=== PATIENT | male | born 1960 | race Caucasian/White ===

== ENCOUNTER → 2017-10-28 | Outpatient (CLI) | payer BC, OTHER ==
[~2017-10-28] MED LIST: B12 COMPLEX PO; BUPR1FIL3; CHOL500045 PO; MAGNESIUM PO; METH500T7; PREG100C PO
[2017-10-28 09:04] LABS: BASOPHILS # (AUTO) 0.03 x10^3/uL (0-0.1); BASOPHILS % (AUTO) 1 % (0-1); EOSINOPHILS # (AUTO) 0.27 x10^3/uL (0-0.4); EOSINOPHILS % (AUTO) 4 % (1-7); LYMPHOCYTES # (AUTO) 1.53 x10^3/uL (1-3.4); LYMPHOCYTES % (AUTO) 23 % (22-44); MD NO; MEAN CORPUSCULAR HEMOGLOBIN 28.9 pg (27.5-34.5); MEAN CORPUSCULAR HGB CONC 33.6 g/dL (33.2-36.2); MEAN CORPUSCULAR VOLUME 85.9 fL (81-97); MEAN PLATELET VOLUME 8.2 fL (7.4-10.4); MONOCYTES # (AUTO) 0.56 x10^3/uL (0.2-0.8); MONOCYTES % (AUTO) 9 % (2-9); NEUTROPHILS # (AUTO) 4.17 x10^3/uL (1.8-6.8); NEUTROPHILS % (AUTO) 64 % (42-75); PLATELET COUNT 227 x10^3/uL (130-400); RED BLOOD COUNT 5.06 x10^6/uL (4.38-5.82); RED CELL DISTRIBUTION WIDTH 13.5 % (9.4-14.8)
[2017-10-28 09:09] LABS: ALANINE AMINOTRANSFERASE 46 U/L (12-78); ALBUMIN 3.5 g/dL (3.4-5.0); ANION GAP 6 mmol/L (5-15); CHLORIDE 107 mmol/L (98-107); CREATININE 0.86 mg/dL (0.7-1.3)
[2017-10-28 09:11] LABS: ALKALINE PHOSPHATASE 81 U/L (45-117); BILIRUBIN,TOTAL 0.8 mg/dL (0.2-1.0); TOTAL PROTEIN 6.8 g/dL (6.4-8.2)
== END | disposition home or self-care (01) ==
LOC: STAR 08:06
PROVIDERS: ATTEND Surgery
DX: Z01.818 Encounter for other preprocedural examination (principal); R94.31 Abnormal electrocardiogram [ECG] [EKG]
CPT/HCPCS: 36415; 80053; 85025; 93005

== ENCOUNTER 2017-11-04 07:09 | Inpatient (IN) | payer BC ==
[~2017-11-04] VITALS: Ht 170.2 cm; Wt 81.0 kg
[~2017-11-04 07:09] MED LIST changes: +BUPIVACAINE/PF-EPI 0.5% 1:200K ONE; +INDOCYANINE GREEN 25 MG VIAL ONE
[2017-11-04] MEDS ORDERED: LACTATED RINGERS 1,000 ML IV SCH (07:28)
[2017-11-04] MEDS ORDERED: ACETAMINOPHEN 500 MG TABLET PO ONE (07:30)
[2017-11-04] MEDS ORDERED: OxyconTIN ER 20 MG TAB.ER PO ONE (07:30)
[2017-11-04] MEDS ORDERED: FAMOTIDINE 20 MG TABLET PO ONE (07:30)
[2017-11-04] MEDS ORDERED: SCOPOLAMINE PATCH, 1.5MG PATCH.TD72 TD ONE (07:30)
[2017-11-04] MEDS ORDERED: PREGABALIN 150 MG CAPSULE PO ONE (07:30)
[2017-11-04 07:31] VITALS: BP 133/81
[2017-11-04] MEDS ORDERED: MIDAZOLAM 1 MG/ML, 2ML ONE (09:35)
[2017-11-04] MEDS ORDERED: FENTANYL PF 250 MCG/5ML ONE ×2 (09:35→10:45)
[2017-11-04] MEDS ORDERED: BUPIVACAINE/PF 0.25% ONE (09:38)
[2017-11-04] MEDS ORDERED: KETAMINE 10 MG/ML, 20ML ONE (09:44)
[2017-11-04] MEDS ORDERED: BUPIVACAINE/PF-EPI 0.5% 1:200K INFIL ONE (10:34)
[2017-11-04] MEDS ORDERED: HYDROmorphone 2 MG/ML, 1ML ONE ×2 (10:47→12:16)
[2017-11-04] MEDS ORDERED: MEPERIDINE/PF 25MG/0.5ML IVPush PRN (11:00)
[2017-11-04] MEDS ORDERED: DIPHENHYDRAMINE 50 MG/ML, 1ML IVPush PRN ×2 (11:00→13:30)
[2017-11-04] MEDS ORDERED: DIAZEPAM 5 MG/ML, 2ML IVPush PRN (11:00)
[2017-11-04] MEDS ORDERED: FENTANYL PF 100 MCG/2ML IV PRN (11:00)
[2017-11-04] MEDS ORDERED: MIDAZOLAM 1 MG/ML, 2ML IV PRN (11:00)
[2017-11-04] MEDS ORDERED: hydrALAzine 20 MG/ML, 1ML IV PRN (11:00)
[2017-11-04] MEDS ORDERED: PROMETHAZINE 25 MG/ML, 1ML IV PRN (11:00)
[2017-11-04] MEDS ORDERED: ALBUTEROL/IPRATROPIUM 2.5MG/0.5MG, 3 ML NPPB PRN (11:00)
[2017-11-04] MEDS ORDERED: ONDANSETRON 2MG/ML, 2ML IV PRN ×2 (11:00→13:30)
[2017-11-04] MEDS ORDERED: OXYcodone 5 MG/5 ML ORAL.SOL UDC PO PRN (11:00)
[2017-11-04] MEDS ORDERED: LABETALOL 5MG/ML, 20ML IV PRN (11:00)
[2017-11-04] MEDS ORDERED: EPHEDRINE 50 MG/ML, 1ML IM PRN (11:00)
[2017-11-04] MEDS ORDERED: HYDROmorphone 1 MG/ML, 1ML IV PRN (11:00)
[2017-11-04] MEDS ORDERED: DEXAMETHASONE 4 MG/ML, 1ML ONE (11:45)
[2017-11-04] MEDS ORDERED: CEFAZOLIN 1,000 MG ONE (11:45)
[2017-11-04] MEDS ORDERED: ROCURONIUM 10MG/ML,5ML ONE (11:45)
[2017-11-04] MEDS ORDERED: CEFOTETAN PMX 2GM/50ML 50 ML ONE (11:45)
[2017-11-04] MEDS ORDERED: GLYCOPYRROLATE 0.2MG/1ML, 5ML ONE (11:45)
[2017-11-04] MEDS ORDERED: PROPOFOL 10 MG/ML, 20ML ONE (11:45)
[2017-11-04] MEDS ORDERED: NEOSTIGMINE 1 MG/ML, 10ML ONE (11:45)
[2017-11-04] MEDS ORDERED: SUCCINYLCHOLINE 20 MG/ML, 10ML ONE (11:45)
[2017-11-04] MEDS ORDERED: ONDANSETRON 2MG/ML, 2ML ONE (11:45)
[2017-11-04] MEDS ORDERED: OXYcodone 5 MG/5 ML ORAL.SOL UDC ONE (12:16)
[2017-11-04] MEDS ORDERED: LORazepam 2 MG/ML, 1ML IVPush PRN (13:30)
[2017-11-04] MEDS ORDERED: HYDROmorphone 1 MG/ML, 1ML IVPush PRN (13:30)
[2017-11-04] MEDS ORDERED: D5%-0.45NACL+KCL 20MEQ 1,000 ML IV SCH (13:30)
[2017-11-04] MEDS ORDERED: HALOPERIDOL 5 MG/ML IVPush PRN (13:30)
[2017-11-04] MEDS ORDERED: SCOPOLAMINE PATCH, 1.5MG PATCH.TD72 TD PRN (13:30)
[2017-11-04] MEDS ORDERED: CALCIUM CARBONATE 500 MG TAB.CHEW PO PRN (13:30)
[2017-11-04] MEDS ORDERED: LORazepam 1MG TABLET PO PRN (13:30)
[2017-11-04] MEDS ORDERED: DEXAMETHASONE 4 MG/ML, 1ML IVPush PRN (13:30)
[2017-11-04] MEDS ORDERED: DIPHENHYDRAMINE 25 MG CAPSULE PO PRN (13:30)
[2017-11-04 15:05] VITALS: BP 122/77
[2017-11-04] MEDS: IBUPROFEN 800 MG TABLET PO SCH ×2 (16:00→20:36)
[2017-11-04] MEDS: OXYcodone IR 5MG TABLET PO PRN (17:26)
[2017-11-04] MEDS: ACETAMINOPHEN 500 MG TABLET PO SCH (17:26)
[2017-11-04 19:41] VITALS: BP 127/83
[2017-11-04] MEDS: PREGABALIN 200 MG CAPSULE PO SCH (20:36)
[2017-11-05] MEDS: ACETAMINOPHEN 500 MG TABLET PO SCH ×4 (00:01→17:49)
[2017-11-05 00:16] VITALS: BP 98/60
[2017-11-05 03:59] VITALS: BP 96/68
[2017-11-05 05:21] LABS: ANION GAP 7 mmol/L (5-15); CALCIUM 8.6 mg/dL (8.5-10.1); CHLORIDE 108 mmol/L (98-107)
[2017-11-05 05:22] LABS: CREATININE 0.98 mg/dL (0.7-1.3)
[2017-11-05 05:32] LABS: BASOPHILS # (AUTO) 0.01 x10^3/uL (0-0.1); BASOPHILS % (AUTO) 0 % (0-1); EOSINOPHILS # (AUTO) 0.01 x10^3/uL (0-0.4); EOSINOPHILS % (AUTO) 0 % (1-7); LYMPHOCYTES # (AUTO) 1.14 x10^3/uL (1-3.4); LYMPHOCYTES % (AUTO) 12 % (22-44); MD NO; MEAN CORPUSCULAR HEMOGLOBIN 29.1 pg (27.5-34.5); MEAN CORPUSCULAR HGB CONC 33.5 g/dL (33.2-36.2); MEAN CORPUSCULAR VOLUME 86.9 fL (81-97); MEAN PLATELET VOLUME 8.6 fL (7.4-10.4); MONOCYTES # (AUTO) 0.94 x10^3/uL (0.2-0.8); MONOCYTES % (AUTO) 10 % (2-9); NEUTROPHILS # (AUTO) 7.13 x10^3/uL (1.8-6.8); NEUTROPHILS % (AUTO) 77 % (42-75); PLATELET COUNT 228 x10^3/uL (130-400); RED BLOOD COUNT 4.94 x10^6/uL (4.38-5.82); RED CELL DISTRIBUTION WIDTH 13.4 % (9.4-14.8)
[2017-11-05] MEDS: OXYcodone IR 5MG TABLET PO PRN ×3 (06:16→16:05)
[2017-11-05 06:52] VITALS: BP 103/62
[2017-11-05] MEDS: MAGNESIUM OXIDE 400 MG TABLET PO SCH (08:51)
[2017-11-05] MEDS: PREGABALIN 200 MG CAPSULE PO SCH ×2 (08:52→20:55)
[2017-11-05] MEDS: IBUPROFEN 800 MG TABLET PO SCH ×3 (08:52→20:55)
[2017-11-05] MEDS ORDERED: ENOXAPARIN 40 MG/0.4 ML SQ SCH (09:30)
[2017-11-05 12:47] VITALS: BP 90/55
[2017-11-05 14:05] VITALS: BP 105/57
[2017-11-05 18:32] VITALS: BP 102/63
[2017-11-06] VITALS (8 sets, daily range): BP systolic 84–115; BP diastolic 52–74
[2017-11-06] MEDS: ACETAMINOPHEN 500 MG TABLET PO SCH ×4 (00:54→20:46)
[2017-11-06] MEDS ORDERED: SODIUM CHLORIDE 0.9% 1,000ML IVBOLUS ONE (01:00)
[2017-11-06 01:06] LABS: BASOPHILS # (AUTO) 0.06 x10^3/uL (0-0.1); BASOPHILS % (AUTO) 1 % (0-1); EOSINOPHILS # (AUTO) 0.14 x10^3/uL (0-0.4); EOSINOPHILS % (AUTO) 2 % (1-7); LYMPHOCYTES % (AUTO) 25 % (22-44); MD NO; MEAN CORPUSCULAR HEMOGLOBIN 29.3 pg (27.5-34.5); MEAN CORPUSCULAR HGB CONC 33.6 g/dL (33.2-36.2); MEAN CORPUSCULAR VOLUME 87.4 fL (81-97); MEAN PLATELET VOLUME 8.3 fL (7.4-10.4); MONOCYTES # (AUTO) 0.44 x10^3/uL (0.2-0.8); MONOCYTES % (AUTO) 5 % (2-9); NEUTROPHILS # (AUTO) 5.82 x10^3/uL (1.8-6.8); NEUTROPHILS % (AUTO) 68 % (42-75); PLATELET COUNT 216 x10^3/uL (130-400); RED BLOOD COUNT 4.54 x10^6/uL (4.38-5.82); RED CELL DISTRIBUTION WIDTH 13.5 % (9.4-14.8)
[2017-11-06 01:21] LABS: ALANINE AMINOTRANSFERASE 32 U/L (12-78); ALBUMIN 3.2 g/dL (3.4-5.0); ANION GAP 6 mmol/L (5-15); CALCIUM 8.4 mg/dL (8.5-10.1); CHLORIDE 108 mmol/L (98-107); CREATININE 1.02 mg/dL (0.7-1.3)
[2017-11-06 01:23] LABS: ALKALINE PHOSPHATASE 66 U/L (45-117); BILIRUBIN,TOTAL 0.6 mg/dL (0.2-1.0); TOTAL PROTEIN 6.1 g/dL (6.4-8.2)
[2017-11-06 04:41] LABS: BASOPHILS # (AUTO) 0.03 x10^3/uL (0-0.1); BASOPHILS % (AUTO) 0 % (0-1); EOSINOPHILS % (AUTO) 2 % (1-7); LYMPHOCYTES # (AUTO) 2.06 x10^3/uL (1-3.4); LYMPHOCYTES % (AUTO) 24 % (22-44); MD NO; MEAN CORPUSCULAR HEMOGLOBIN 28.5 pg (27.5-34.5); MEAN CORPUSCULAR HGB CONC 33.1 g/dL (33.2-36.2); MEAN CORPUSCULAR VOLUME 86.1 fL (81-97); MEAN PLATELET VOLUME 8.5 fL (7.4-10.4); MONOCYTES # (AUTO) 0.78 x10^3/uL (0.2-0.8); MONOCYTES % (AUTO) 9 % (2-9); NEUTROPHILS # (AUTO) 5.48 x10^3/uL (1.8-6.8); NEUTROPHILS % (AUTO) 64 % (42-75); PLATELET COUNT 196 x10^3/uL (130-400); RED BLOOD COUNT 4.26 x10^6/uL (4.38-5.82); RED CELL DISTRIBUTION WIDTH 13.5 % (9.4-14.8)
[2017-11-06 04:43] LABS: ANION GAP 5 mmol/L (5-15); CALCIUM 8.1 mg/dL (8.5-10.1); CHLORIDE 112 mmol/L (98-107)
[2017-11-06 04:44] LABS: CREATININE 0.89 mg/dL (0.7-1.3)
[2017-11-06] MEDS: IBUPROFEN 800 MG TABLET PO SCH ×3 (05:26→21:00)
[2017-11-06] MEDS: MAGNESIUM OXIDE 400 MG TABLET PO SCH (08:24)
[2017-11-06] MEDS: OXYcodone IR 5MG TABLET PO PRN ×4 (08:24→20:50)
[2017-11-06] MEDS: PREGABALIN 200 MG CAPSULE PO SCH ×2 (08:24→20:50)
[2017-11-06] MEDS ORDERED: ENOXAPARIN 40 MG/0.4 ML SQ SCH (09:30)
[2017-11-07] VITALS: BP 96/62
[2017-11-07 02:21] VITALS: BP 111/69
[2017-11-07] MEDS: OXYcodone IR 5MG TABLET PO PRN ×3 (02:26→13:14)
[2017-11-07] MEDS: ACETAMINOPHEN 500 MG TABLET PO SCH ×2 (02:26→08:01)
[2017-11-07 02:32] VITALS: BP 110/64
[2017-11-07 04:56] LABS: BASOPHILS # (AUTO) 0.04 x10^3/uL (0-0.1); BASOPHILS % (AUTO) 1 % (0-1); EOSINOPHILS # (AUTO) 0.37 x10^3/uL (0-0.4); EOSINOPHILS % (AUTO) 5 % (1-7); LYMPHOCYTES # (AUTO) 1.65 x10^3/uL (1-3.4); LYMPHOCYTES % (AUTO) 23 % (22-44); MD NO; MEAN CORPUSCULAR HEMOGLOBIN 28.9 pg (27.5-34.5); MEAN CORPUSCULAR HGB CONC 33.3 g/dL (33.2-36.2); MEAN CORPUSCULAR VOLUME 86.8 fL (81-97); MEAN PLATELET VOLUME 8.3 fL (7.4-10.4); MONOCYTES # (AUTO) 0.71 x10^3/uL (0.2-0.8); MONOCYTES % (AUTO) 10 % (2-9); NEUTROPHILS # (AUTO) 4.57 x10^3/uL (1.8-6.8); NEUTROPHILS % (AUTO) 62 % (42-75); PLATELET COUNT 212 x10^3/uL (130-400); RED BLOOD COUNT 4.32 x10^6/uL (4.38-5.82); RED CELL DISTRIBUTION WIDTH 13.7 % (9.4-14.8)
[2017-11-07 05:08] LABS: CHLORIDE 110 mmol/L (98-107)
[2017-11-07 05:12] LABS: ANION GAP 6 mmol/L (5-15); CALCIUM 8.2 mg/dL (8.5-10.1)
[2017-11-07 07:34] VITALS: BP 133/75
[2017-11-07] MEDS ORDERED: ASPIRIN 81 MG TABLET CHEW ONE (07:53)
[2017-11-07] MEDS: PREGABALIN 200 MG CAPSULE PO SCH (08:01)
[2017-11-07] MEDS: MAGNESIUM OXIDE 400 MG TABLET PO SCH (08:01)
[2017-11-07] MEDS: IBUPROFEN 800 MG TABLET PO SCH (08:01)
[2017-11-07] MEDS ORDERED: ASPIRIN 81 MG TABLET CHEW PO SCH (09:00)
[2017-11-07] MEDS ORDERED: IBUP-1223 PO (09:40)
[2017-11-07] MEDS ORDERED: OXYC-307 PO (09:40)
[2017-11-07] MEDS ORDERED: ENOX40SY4 SQ (09:40)
[2017-11-07] MEDS ORDERED: ENOXAPARIN 40 MG/0.4 ML ONE (10:36)
[2017-11-07 13:19] VITALS: BP 122/79
[2017-11-07] MEDS ORDERED: OXYC5CAP2 PO (13:43)
== END 2017-11-07 13:52 | disposition home or self-care (01) | DRG 331 ==
LOC: ORIP 07:09 → 4NOR 13:05 → DCLOUNGE 11-07 13:37
PROVIDERS: ADMIT Surgery; ATTEND Surgery
PROC: 0DBP4ZZ Excision of Rectum, Percutaneous Endoscopic Approach (ICD-10-PCS; 2017-11-04)
PROC: 8E0W4CZ Robotic Assisted Procedure of Trunk Region, Percutaneous Endoscopic Approach (ICD-10-PCS; 2017-11-04)
PROC: 0DBN4ZZ Excision of Sigmoid Colon, Percutaneous Endoscopic Approach (ICD-10-PCS; principal; 2017-11-04 09:00)
DX: C18.7 Malignant neoplasm of sigmoid colon (principal); Z79.01 Long term (current) use of anticoagulants; E78.00 Pure hypercholesterolemia, unspecified; Z90.49 Acquired absence of other specified parts of digestive tract; Z96.659 Presence of unspecified artificial knee joint; Z82.3 Family history of stroke; Z82.49 Family history of ischemic heart disease and other diseases of the circulatory system; Z80.6 Family history of leukemia; Z80.0 Family history of malignant neoplasm of digestive organs; Z80.8 Family history of malignant neoplasm of other organs or systems; F17.200 Nicotine dependence, unspecified, uncomplicated
CPT/HCPCS: 36415; J3490; 80048; 80053; 85025; 86850; 86900; 88309; C1729; J0690; J1100; J1170; J1650; J2250; J2405; J2704; J2710; J3010; J3360; J0330; J3480; J7030; J7120; S0074

== ENCOUNTER → 2018-05-19 | Outpatient (CLI) | payer BC ==
[~2018-05-19] MED LIST changes: -BUPIVACAINE/PF-EPI 0.5% 1:200K ONE; +ENOX40SY4 SQ; +IBUP-1223 PO; -INDOCYANINE GREEN 25 MG VIAL ONE; +OMNIPAQUE 350 MG/ML, 100ML BOTTLE ONE; +OXYC-307 PO; +OXYC5CAP2 PO
== END | disposition home or self-care (01) ==
LOC: RAD 11:44
PROVIDERS: ATTEND Internal Medicine Geriatric Medicine
DX: C18.9 Malignant neoplasm of colon, unspecified (principal); M51.36 Other intervertebral disc degeneration, lumbar region; N28.1 Cyst of kidney, acquired; N20.0 Calculus of kidney
CPT/HCPCS: 74177; Q9967

== ENCOUNTER 2018-10-06 09:28 | Outpatient (CLI) | payer BC ==
[~2018-10-06 09:28] MED LIST changes: -OMNIPAQUE 350 MG/ML, 100ML BOTTLE ONE
== END 2018-10-06 23:59 | disposition home or self-care (01) ==
LOC: CFH 09:28
PROVIDERS: ATTEND Radiology Diagnostic Radiology
DX: M25.511 Pain in right shoulder (principal)